=== PATIENT | female | born 1985 | race Caucasian/White ===

== ENCOUNTER 2017-10-11 11:15 | Emergency (ER) | payer BC, OTHER ==
[~2017-10-11] VITALS: Ht 149.9 cm; Wt 68.0 kg
[2017-10-11 11:15] VITALS: BP 139/49
[~2017-10-11 11:15] MED LIST: PHEN-410; QUET25TA
== END 2017-10-11 11:56 | disposition home or self-care (01) ==
LOC: ER 11:16
DX: F19.10 Other psychoactive substance abuse, uncomplicated (principal); R56.9 Unspecified convulsions; F17.200 Nicotine dependence, unspecified, uncomplicated
CPT/HCPCS: 99283; A4606; Z7610